=== PATIENT | female | born 1990 | race Caucasian/White ===

== ENCOUNTER 2017-03-17 00:42 | Outpatient (CLI) | payer MEDICAID | END 2017-03-17 00:43 | disposition critical access hospital (66) | LOC: EMS 00:42 | PROVIDERS: ATTEND Surgery | DX: R45.851 Suicidal ideations (principal) | CPT/HCPCS: A0425; A0429 ==

== ENCOUNTER 2017-03-17 01:04 | Emergency (ER) | payer MEDICAID ==
[2017-03-17 01:43] LABS: BILIRUBIN,URINE NEGATIVE (NEGATIVE); PH,URINE 5.5 PH (5.0-7.5)
[2017-03-17 01:44] LABS: UA w/ MICROSCOPIC CHARGE YES
[2017-03-17 01:50] LABS: ALBUMIN/GLOBULIN RATIO 1.6 (1.0-2.2); BILIRUBIN,TOTAL 0.2 mg/dL (0.2-1.0); BUN - BLOOD UREA NITROGEN 15 mg/dL (6-20); CARBON DIOXIDE - CO2 29 mmol/L (21-32); CHLORIDE 102 mmol/L (101-111); CREATININE 0.8 mg/dL (0.4-1.0); GFR - MDRD 88 (>89); GLUCOSE 102 mg/dL (70-100); LIPASE 32 U/L (22-51); POTASSIUM 4.1 mmol/L (3.5-5.0); SODIUM 138 mmol/L (135-145); TOTAL PROTEIN 7.5 g/dL (6.7-8.2)
[2017-03-17 02:02] LABS: ACETAMINOPHEN < 10 ug/mL (10-30)
[2017-03-17 02:02] LABS: UR CULTURE IF IND NOT INDICATED; WBC,URINE 0-3 /HPF (0-5)
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
--- NOTE | 2017-03-17 14:09 | ED Physician Documentation ---
History of Present Illness - Stated complaint Stated Complaint: SI, DEPRESSION, ANXIETY - Chief complaint Chief Complaint: MHE - History obtained from History obtained from: Patient - History of Present Illness Timing: Chronic - Additonal information Additional information: 26-year-old female with a history of depression and suicidal ideation remarked to her family yesterday that she wanted to go and jump off the bridge. She was brought to the hospital by ambulance and spent the night to see the social research assistant in the morning. The patient is no longer suicidal she does have an appointment with her counselor today and has some insight into the fact that her remarks have gotten her into some trouble. PD PAST MEDICAL HISTORY - Past Medical History Past Medical History: Yes Cardiovascular: None Respiratory: None Neuro: Other Endocrine/Autoimmune: None GI: None LAP POLISHER: None : None HEENT: None Psych: Depression, Anxiety, Panic attacks Musculoskeletal: None Derm: None - Past Surgical History Past Surgical History: Yes /LAP POLISHER: Tubal ligation - Present Medications Home Medications: Ambulatory Orders Medication Instructions Recorded Confirmed No Known Home Medications [No 03/17/17 03/17/17 Known Home Medications] - Allergies Allergies/Adverse Reactions: Allergies Allergy/AdvReac Type Severity Reaction Status Date / Time No Known Drug Allergies Allergy Verified 03/17/17 08:00 - Social History Does the pt smoke?: Yes Smoking Status: Current every day smoker Does the pt drink ETOH?: No Does the pt have substance abuse?: No - Immunizations Immunizations are current?: Yes Results - Vitals Vitals: Vital Signs - 24 hr 03/17/17 03/17/17 03/17/17 01:07 05:45 07:56 Temperature 36.9 C 36.5 C Heart Rate 82 63 70 Respiratory 16 17 16 Rate Blood Pressure 119/81 H 98/63 97/55 L O2 Saturation 100 99 99 03/17/17 11:09 Temperature Heart Rate 89 Respiratory 18 Rate Blood Pressure 118/66 O2 Saturation 99 Oxygen O2 Source Room air - Labs Labs: Laboratory Tests 03/17/17 03/17/17 03/17/17 01:33 01:33 01:33 Sodium 138 Potassium 4.1 Chloride 102 Carbon Dioxide 29 Anion Gap 7.0 BUN 15 Creatinine 0.8 Estimated GFR (MDRD) 88 L Glucose 102 H Calcium 9.0 Total Bilirubin 0.2 AST 13 ALT 10 Alkaline Phosphatase 54 Total Protein 7.5 Albumin 4.6 Globulin 2.9 Albumin/Globulin Ratio 1.6 Lipase 32 TSH 12.07 H HCG, Quant < 0.60 Urine Color Urine Clarity Urine pH Ur Specific [place] Urine Protein Urine Glucose (UA) Urine Ketones Urine Occult Blood Urine Nitrite Urine Bilirubin Urine Urobilinogen Ur Leukocyte Esterase Urine RBC Urine WBC Ur Squamous Epith Cells Urine Bacteria Ur Microscopic Review Urine Culture Comments Urine Opiates Screen Ur Oxycodone Screen Urine Methadone Screen Ur Propoxyphene Screen Acetaminophen < 10 L Ur Barbiturates Screen Ur Tricyclics Screen Ur Phencyclidine Scrn Ur Amphetamine Screen U Methamphetamines Scrn U Benzodiazepines Scrn Urine Cocaine Screen U Cannabinoids Screen Ethyl Alcohol < 5.0 03/17/17 01:38 Sodium Potassium Chloride Carbon Dioxide Anion Gap BUN Creatinine Estimated GFR (MDRD) Glucose Calcium Total Bilirubin AST ALT Alkaline Phosphatase Total Protein Albumin Globulin Albumin/Globulin Ratio Lipase TSH HCG, Quant Urine Color YELLOW Urine Clarity SL. CLOUDY Urine pH 5.5 Ur Specific [place] >=1.030 H Urine Protein NEGATIVE Urine Glucose (UA) NEGATIVE Urine Ketones NEGATIVE Urine Occult Blood SMALL H Urine Nitrite NEGATIVE Urine Bilirubin NEGATIVE Urine Urobilinogen 0.2 (NORMAL) Ur Leukocyte Esterase NEGATIVE Urine RBC 0-5 Urine WBC 0-3 Ur Squamous Epith Cells MOD Squamous H Urine Bacteria Rare Ur Microscopic Review INDICATED Urine Culture Comments NOT INDICATED Urine Opiates Screen NEGATIVE Ur Oxycodone Screen NEGATIVE Urine Methadone Screen NEGATIVE Ur Propoxyphene Screen NEGATIVE Acetaminophen Ur Barbiturates Screen NEGATIVE Ur Tricyclics Screen NEGATIVE Ur Phencyclidine Scrn NEGATIVE Ur Amphetamine Screen NEGATIVE U Methamphetamines Scrn NEGATIVE U Benzodiazepines Scrn NEGATIVE Urine Cocaine Screen NEGATIVE U Cannabinoids Screen NEGATIVE Ethyl Alcohol PD MEDICAL DECISION MAKING - ED course Complexity details: reviewed results, re-evaluated patient, considered differential, d/w patient ED course: 26-year-old female with a history of suicidal ideation and depression 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 She has not been in a support group relating to to [place] and I have recommended that she ask her counselor about a support group for [place]'s. She does have one child who is tested to have 50% chance.Today her thyroid functions were mildly elevated on the TSH and I have asked her to follow-up with her primary care doctor for further testing and treatment. Departure - Departure Disposition: 01 Home, Self Care Clinical Impression: Suicidal ideation, Thyroid disease Depression Qualifiers: Depression Type: other depression Qualified Code(s): F32.89 - Other specified depressive episodes Condition: Stable Instructions: ED Depression, ED Hypothyroidism Follow-Up: Anu Sainz DO [Primary Care Provider] - Comments: Follow-up with her counselor today as previously planned and inquire about a support group for Sumi's chorea. Follow-up with your primary care doctor about your thyroid functions. You will need further testing or treatment. Treatment can improve depression.
[2017-03-17 14:34] VITALS: BP 125/66
== END 2017-03-17 14:33 | disposition home or self-care (01) ==
LOC: EDUNIT# → EDBD → ED 01:04
DX: F32.89 Other specified depressive episodes (principal); R45.851 Suicidal ideations; E07.9 Disorder of thyroid, unspecified; G10 Huntington's disease; F17.200 Nicotine dependence, unspecified, uncomplicated
CPT/HCPCS: 36415; 80053; 80306; 80307; 80320; 81001; 81003; 83690; 84443; 84702; 87086; 99283; 99284